=== PATIENT | female | born 1990 | race Two or more races ===

== ENCOUNTER 2023-12-29 13:10 | Emergency (ER) | payer OTHER ==
[2023-12-29 13:26] VITALS: BP 115/82; PULSE 71
[2023-12-29] MEDS: Lidocaine 1% 5 ML VIAL INJECT ONE (13:50)
[2023-12-29] MEDS: Lidocaine 1% 5 ML VIAL ONE (13:55)
[2023-12-29] MEDS: Diphtheria,Pertussis(Acell),Tetanus Vaccine 0.5 ML Syringe IM ONE (14:17)
[2023-12-29] MEDS: Bacitracin/Neomycin/Polymyxin B Oint 0.9 GM U/D Packet TOP ONE (14:19)
== END 2023-12-29 14:25 | disposition home or self-care (01) ==
LOC: KA.ED 13:10
DX: S61.012A Laceration without foreign body of left thumb without damage to nail, initial encounter (principal); Z23 Encounter for immunization; W26.0XXA Contact with knife, initial encounter
CPT/HCPCS: 12001; 90471; 90715; 99283; 99283-25; J3490